=== PATIENT | female | born 1940 | race Caucasian/White ===

== ENCOUNTER 2018-10-15 11:46 | Emergency (ER) | payer OTHER ==
[~2018-10-15] VITALS: Ht 157.5 cm; Wt 68.9 kg
[2018-10-15] MEDS ORDERED: HYZAAR 100-12.1 EACH (12:24)
[2018-10-15] MEDS ORDERED: CRESTOR10 MG (12:25)
[2018-10-15] MEDS ORDERED: METOPROLOL SUC100 MG (12:25)
[2018-10-15] MEDS ORDERED: PNEU16DI2 (12:25)
[2018-10-15] MEDS ORDERED: PROTONIX40 MG (12:25)
== END 2018-10-15 18:44 | disposition home or self-care (01) ==
LOC: ER 11:46
DX: K63.89 Other specified diseases of intestine (principal)